=== PATIENT | male | born 1985 | race Caucasian/White ===

== ENCOUNTER 2020-09-02 19:56 | Emergency (ER) | payer SELFPAY ==
[2020-09-02] MEDS ORDERED: Lidocaine 1% (PF) 30 ML VIAL ONE (20:09)
--- NOTE | 2020-09-02 20:54 | CT ---
CT BRAIN WITHOUT CONTRAST: HISTORY: Head injury, headache, laceration to the head FINDINGS: No evidence of acute infarct, hemorrhage, midline shift or abnormal extra-axial fluid collections is seen. The ventricular size is appropriate and the basilar cisterns are patent. The bony calvarium is intact. The visualized paranasal sinuses and mastoid air cells are well aerated. IMPRESSION: No CT evidence of acute intracranial process.
[2020-09-02] MEDS ORDERED: Bacitracin 1 PK ONE (21:06)
--- NOTE | 2020-09-02 21:07 | CT ---
CT CERVICAL SPINE NONCONTRAST: 09/02/20 HISTORY: 34-year=old male status post acute cervical trauma from fall. FINDINGS: There are no jumped or perched facets. There is no evidence of acute fracture. The vertebral body h eights are maintained. There is no prevertebral soft tissue swelling. Metallic artificial disc is pr esent at C6-7, which obscures fine bony detail of the adjacent end plates. Otherwise, there are no hi gh grade degenerative changes. IMPRESSION: 1. No evidence of acute fracture or acute traumatic subluxation. 2. Artificial disc at C6-7. elie aquino POS: JIN
== END 2020-09-02 21:10 | disposition home or self-care (01) ==
LOC: NAV ERS 19:56
DX: S01.01XA Laceration without foreign body of scalp, initial encounter (principal); K21.9 Gastro-esophageal reflux disease without esophagitis; F17.210 Nicotine dependence, cigarettes, uncomplicated; M06.9 Rheumatoid arthritis, unspecified; W01.198A Fall on same level from slipping, tripping and stumbling with subsequent striking against other object, initial encounter
CPT/HCPCS: 12002; 12011; 70450; 72125; J2001